=== PATIENT | male | born 1975 | race Caucasian/White ===

== ENCOUNTER 2024-05-05 20:24 | Emergency (ER) | payer MEDICAID ==
[~2024-05-05] VITALS: Ht 160 cm; Wt 93.0 kg
[2024-05-05] MEDS: KETOROLAC TROMETHAMINE 15 MG/ML VIAL IM ONE (21:16)
[2024-05-05 21:40] LABS: BASOPHILS # (AUTO) 0.1 K/uL (0.0-0.2); BASOPHILS % (AUTO) 1.1 % (0.0-2.0); EOSINOPHILS % (AUTO) 0.5 % (0.0-6.0); HEMATOCRIT 34 % (39-51); HEMOGLOBIN 11.3 g/dL (13.5-17.5); LYMPHOCYTES # (AUTO) 0.9 K/uL (0.8-4.8); LYMPHOCYTES % (AUTO) 12.6 % (20.0-44.0); MEAN CORPUSCULAR HEMOGLOBIN 27 PG (26.0-33.0); MEAN CORPUSCULAR HGB CONC 33 g/dl (31.0-36.0); MEAN CORPUSCULAR VOLUME 81 fL (80-96); MONOCYTES # (AUTO) 0.8 K/uL (0.1-1.30); MONOCYTES % (AUTO) 11.5 % (2.0-12.0); NEUTROPHILS # (AUTO) 5.1 K/uL (1.8-8.9); NEUTROPHILS % (AUTO) 74.3 % (43.0-81.0); PLATELET COUNT (AUTO) 327 K/uL (150-450); RED BLOOD CELL COUNT(AUTO) 4.23 MIL/uL (4.5-6.0); RED CELL DISTRIBUTION WIDTH 19.2 % (11.5-15.0); WHITE BLOOD COUNT (AUTO) 6.8 K/uL (4.3-11.0)
[2024-05-05 21:42] LABS: ERYTHROCYTE SEDIMENTATION RATE 67 MM/HR (0-20)
[2024-05-05 21:50] LABS: CALCIUM, SERUM 9.4 mg/dL (8.5-10.1); CREATININE 0.9 mg/dL (0.6-1.3); POTASSIUM 4.1 mmol/L (3.5-5.1)
[2024-05-05 21:53] LABS: C-REACTIVE PROTEIN 1.39 mg/dL (0.0-0.30)
[2024-05-05] MEDS: IV NS 0.9% 1,000 ML BAG IV ONE (22:00)
[2024-05-06 00:28] VITALS: BP 131/89; TEMP 98.4; O2SAT 98
== END 2024-05-06 00:29 | disposition home health service (06) ==
LOC: ER 20:33
DX: R53.1 Weakness (principal); R51.9 Headache, unspecified; R10.9 Unspecified abdominal pain; R07.9 Chest pain, unspecified; G89.18 Other acute postprocedural pain; M25.551 Pain in right hip; F41.9 Anxiety disorder, unspecified; Z96.641 Presence of right artificial hip joint; Z87.39 Personal history of other diseases of the musculoskeletal system and connective tissue; Z20.822 Contact with and (suspected) exposure to COVID-19
CPT/HCPCS: 99285; 96360; 71045; 87426; 73502; 85025; 80048; 85652; 36415; 86140; 96372; J1885